=== PATIENT | female | born 1980 | race Caucasian/White ===

== ENCOUNTER → 2021-08-16 | Outpatient (CLI) | payer BC | LOC: MC.RAD 16:56 | DX: Z12.31 Encounter for screening mammogram for malignant neoplasm of breast (principal) ==

== ENCOUNTER → 2022-08-27 | Outpatient (CLI) | payer BC | LOC: MC.RAD 08-23 14:15 | DX: Z12.31 Encounter for screening mammogram for malignant neoplasm of breast (principal) ==